=== PATIENT | male | born 1960 | race Hispanic/Latino ===

== ENCOUNTER 2021-07-01 04:42 | Emergency (ER) | payer BC ==
[~2021-07-01] VITALS: Ht 157.5 cm; Wt 73.5 kg
[2021-07-01 04:56] VITALS: BP 175/99
[2021-07-01] MEDS ORDERED: ZOLP10TA2 PO (05:12)
== END 2021-07-01 05:22 | disposition home or self-care (01) ==
LOC: EDH 04:42
DX: G47.00 Insomnia, unspecified (principal); H93.13 Tinnitus, bilateral; I10 Essential (primary) hypertension; Z88.0 Allergy status to penicillin; Z88.1 Allergy status to other antibiotic agents; Z88.2 Allergy status to sulfonamides

== ENCOUNTER 2024-08-06 17:28 | Emergency (ER) | payer BC ==
[~2024-08-06] VITALS: Ht 157.5 cm; Wt 71.2 kg
[~2024-08-06 17:28] MED LIST: ZOLP10TA2 PO
[2024-08-06 18:05] VITALS: BP 145/90; PULSE 80; RESP 20; TEMP 98.2; O2SAT 97
--- NOTE | 2024-08-06 18:23 | ERN ---
ED Note History of Present Illness Stated Complaint: FOOT INJURY Chief Complaint: FOOT INJURY/PAIN Time Seen by MD: 17:38 Time Seen by Midlevel: 17:38 Dictation: The patient is a 63-year-old male with a history of hypertension who presents to the emergency department with a wound to the sole of his foot after he stepped on glass onset 5:15 p.m.. Patient reports he removed the glass. Reports glass went through his tennis shoe. Unknown last Tdap. Allergies: Coded Allergies: Penicillins (Unverified Allergy, Unknown, 07/01/21) sulfamethoxazole (Unverified Allergy, Unknown, 07/01/21) trimethoprim (Unverified Allergy, Unknown, 07/01/21) Home Meds Active Scripts Levofloxacin (Levaquin 750Mg Tabs) 750 Mg Tablet, 750 MG PO DAILY for 5 Days, #5 TAB 0 Refills Prov:LAILA HALE 08/06/24 Zolpidem Tartrate (Ambien) 10 Mg Tablet, 10 MG PO at bedtime PRN for INSOMNIA, #7 TAB 0 Refills Prov:GAMALIEL PANG MD 07/01/21 Past Medical History Past Medical History: Hypertension Surgical History: None Social History: Other RN Note Reviewed/Agreed w/PFSH: Yes Review of System Dictation Constitutional: Negative for fever,chills, and weight loss Eyes: Negative for injury, pain,redness, and discharge ENT: Negative for injury,pain or swelling Cardiovascular: Negative for chest pain, palpitations, and edema Respiratory: Negative for shortness of breath, cough, and wheezing, Abdomen/GI: Negative for abdominal pain, nausea, vomiting, diarrhea, and constipation Back: Negative for injury and pain : Negative for injury, bleeding and discharge MS/Extremity: Negative for injury and deformity Skin: Negative for rash, and discoloration positive for laceration of foot Neuro: Negative for headache, weakness, numbness, tingling, and seizure Psych: Negative for suicide ideation, homicidal ideation, and hallucinations Initial Vital Sign VS Vital Signs Date Time Temp Pulse Resp B/P (MAP) Pulse Ox O2 Delivery O2 Flow Rate FiO2 08/06/24 17:58 98.2 80 20 145/90 97 Room Air 0 08/06/24 18:05 21 Physical Exam Dictation Vital Signs reviewed General Appearance: Alert, oriented x 3, no acute distress, well developed, no urished. Head and Face: non-traumatic. Eyes: PERRL, pink conjunctivas, eyelid no trauma, anterior chamber with arcus senilis. Ears: Pinnas intact and no signs of trauma or erythema ear canals clear and no discharge TM no erythema Nose: No discharge, no bleeding. Oropharynx: Mouth normal, tongue pink. pharynx clear,no erythema, tonsils no exudates, no abscesses noted, mucous me mbrane moist Neck: Supple, non-tender, no thyromegaly, no masses, no JVD, no bruits Breast:Deferred Chest:No tenderness, no crepitus, no paradoxical movement, no retractions Lungs:Clear, well-ventilated, symmetric, no rales, no wheezing, no rhonchi, no stridor, good breath sounds bilaterally Heart: Regular rate, regular rhythm, no murmur, no gallops Vascular: no peripheral edema, Abdomen: Soft, positive bowel sounds, nondistended, no guarding, nontender, no rebound, no masses no hepatomegaly, no splenomegaly, no Bates's sign, no hernias. Rectal: Deferred Genital: Deferred Neurological: Normal speech, motor function intact, sensory function intact Musculoskeletal: Neck nontender, full range of motion, back nontender, full range of motion, Extremities: nontender, full range of motion Skin: Color pink, dry, no turgor, no rash, no abrasions, no contusions. Small less than 1 cm laceration to plantar foot, no active bleeding Lymphatic: Deferred Results (Laboratory/Radiology) Laboratory/Radiology REASON: r/o foreign body ORDERING PHYSICIAN: LAILA HALE CAREER PLACEMENT SPECIALIST PROCEDURE: FT 3VW RT - FOOT COMP 3+VWS RT Exam Type: foot AP, lateral weight bearing, oblique- right Clinical Information: r/o foreign body Comparison: None Findings: There are significant degenerative changes of 1st metatarsophalangeal joint. The examination is otherwise unremarkable. No fractures or dislocations are seen. No radiopaque foreign bodies are noted. Soft tissues are preserved. IMPRESSION: Degenerative changes of 1st metatarsophalangeal joint. Labs Reviewed?: Yes ED Course ED Course Medical Decision Making MDM The patient is a 63-year-old male with a history of hypertension who presents to the emergency department with a wound to the sole of his foot after he stepped on glass onset 5:15 p.m.. Patient reports he removed the glass. Reports glass went through his tennis shoe. Unknown last Tdap. X-ray showed no retained foreign body. Wound less than 1 cm, no active bleeding noted. No need for repair. Differential diagnosis: Foreign body retention, laceration, cellulitis Need for hospitalization: Patient does not meet criteria for hospitalization. There are no social concerns with this patient. DX & DISP Disposition: Discharge Departure Impression: Primary Impression: Laceration of plantar aspect of right foot Condition: Stable Scripts Levofloxacin (Levaquin 750Mg Tabs) 750 Mg Tablet 750 MG PO DAILY for 5 Days, #5 TAB 0 Refills Prov: LAILA HALE 08/06/24 Additional Instructions: Please keep wound clean and dry. Take medications as prescribed. If symptoms of infection develop like erythema, fevers, worsen discharge please return to ER. FOLLOW-UP WITH PRIMARY CARE PROVIDER IN 1 TO 2 DAYS. TAKE MEDICATIONS DIR ECTED HERE IN THE EMERGENCY ROOM. OKAY TO CONTINUE HOME MEDICATIONS UNLESS OTHERWISE DISCUSSED DURING YOUR VISIT IN THE EMERGENCY ROOM TODAY. RETURN TO YOUR NEAREST EMERGENCY ROOM IF SYMPTOMS WORSEN OR IF THERE IS NO IMPROVEMENT. CALL 911 IF YOU NEED IMMEDIATE ASSISTANCE. TAKE TYLENOL OR MOTRIN [id number] NEEDED AND IF NO CONTRAINDICATIONS ARE PRESENT. INCREASE ORAL HYDRATION. A WOUND CULTURE OR URINE CULTURE WAS ORDERED HERE IN THE EMERGENCY ROOM DEPARTMENT PLEASE FOLLOW-UP WITH PRIMARY CARE PROVIDER AND ADVISE THEM TO GET REPEAT PORTS FROM OUR FACILITY. IF YOU HAD ANY ROSIE WRAP/SPLINTS THAT WERE APPLIED HERE, PLEASE DO NOT REMOVE THEM UNTIL YOU SEE YOUR PRIMARY CARE OR SPECIALTY. Referrals: NONE (PCP) Time of Disposition: 19:38 I have reviewed the case, and I agree with, Diagnosis and Plan ATTESTATION BY PHYSICIAN I PERFORMED THE SUBSTANTIVE PORTION OF THE VISIT. I HAVE REVIEWED AND PERSONALLY MADE AND APPROVED THE MANAGEMENT PLAN THAT IS DOCUMENTED IN THE NOTE BY MYSELF FOR THE A PP. I ACKNOWLEDGED FOR RESPONSIBILITY FOR THE PATIENT'S MANAGEMENT PLAN. LAILA HALE Aug 06, 2024 18:23 MEGAN ESCOBEDO MD Aug 09, 2024 20:14
[2024-08-06] MEDS: acetaMINOPHEN 500 MG TABLET PO ONE (18:25)
[2024-08-06] MEDS ORDERED: DIPH,PERTUSS(ACELL),TET VAC/PF 0.5 ML VIAL IM ONE (18:30)
[2024-08-06] MEDS: teTANUS/diphthERIA TOXOID [ADULT] 0.5 ML VIAL IM ONE (18:31)
--- NOTE | 2024-08-06 19:31 | HMCIMG ---
Exam Type: foot AP, lateral weight bearing, oblique- right Clinical Information: r/o foreign body Comparison: None Findings: There are significant degenerative changes of 1st metatarsophalangeal joint. The examination is otherwise unremarkable. No fractures or dislocations are seen. No radiopaque foreign bodies are noted. Soft tissues are preserved. IMPRESSION: Degenerative changes of 1st metatarsophalangeal joint.
[2024-08-06] MEDS ORDERED: LEVO750T68 PO (19:41)
--- NOTE | 2024-08-06 20:01 | NUR ---
WOUND CLEANED, PT TOLERATED WELL
== END 2024-08-06 20:02 | disposition home or self-care (01) ==
LOC: EDH 17:28
DX: S91.311A Laceration without foreign body, right foot, initial encounter (principal); I10 Essential (primary) hypertension; Z88.0 Allergy status to penicillin; Z88.1 Allergy status to other antibiotic agents; Z88.2 Allergy status to sulfonamides; W25.XXXA Contact with sharp glass, initial encounter; Y93.01 Activity, walking, marching and hiking; Y92.89 Other specified places as the place of occurrence of the external cause; Y99.8 Other external cause status
CPT/HCPCS: 73630; 90471; 90715; 99284